=== PATIENT | male | born 1960 | race Hispanic/Latino ===

== ENCOUNTER 2018-07-05 00:24 | Inpatient (IN) | payer OTHER, SELFPAY ==
[2018-07-05] MEDS ORDERED: Acetaminophen 500 MG TAB ONE (00:42)
[2018-07-05] MEDS ORDERED: Ibuprofen 800 MG TAB ONE (00:42)
[2018-07-05 00:55] LABS: #Lymphocytes 0.5 thou/uL (1.20-3.40); #Neutrophils 7.2 thou/uL (1.40-6.50); %Basophils 0.3 % (0.0-1.0); %Eosinophils 0.4 % (0.0-10.0); %Monocytes 0.4 % (0.0-10.0); %Neutrophils 91.9 % (42.0-75.0); Mean Corpuscular HGB CONC 34.6 g/dL (32.0-36.0); Mean Corpuscular Hemoglobin 30.8 pg (27.0-31.0); Mean Corpuscular Volume 89.1 fL (78.0-98.0); Mean Platelet Volume 7.6 fL (7.4-10.4); Platelet Count 198 thou/uL (130-400); RBC Distribution Width 11.9 % (11.5-14.5); Red Blood Cell (RBC) Count 5.19 mill/uL (4.70-6.10); White Blood Cell (WBC) Count 7.8 thou/uL (4.8-10.8)
[2018-07-05 01:25] LABS: ALT (SGPT) 35 U/L (8-55); AST (SGOT) 31 U/L (5-34); Albumin 4.5 g/dL (3.5-5.0); Alkaline Phosphatase 56 U/L (40-150); Anion Gap 18 mmol/L (10-20); BUN (Urea Nitrogen) 13 mg/dL (8.4-25.7); Bilirubin, Total 1.1 mg/dL (0.2-1.2); Calc. Creatinine Clearance 0 mL/min (70-130); Calcium 9.8 mg/dL (7.8-10.44); Carbon Dioxide 21 mmol/L (22-29); Chloride 102 mmol/L (98-107); Estimated GFR-MDRD 84; Globulin 3.1 g/dL (2.4-3.5); Glucose 147 mg/dL (70-105); Potassium 3.7 mmol/L (3.5-5.1); Protein, Total 7.6 g/dL (6.0-8.3); Sodium 137 mmol/L (136-145)
[2018-07-05 02:17] LABS: Bilirubin Negative (Negative); Blood, Urine Small (Negative); Clarity CLOUDY (Clear); Glucose, Urine (Dipstick) Negative (Negative); Leukocyte Large (Negative); Nitrite Negative (Negative); Protein, Urine (Dipstick) Negative (Neg-Trace); Specific Gravity, Urine 1.013 (1.002-1.036); pH, Urine 5.5 (5.0-9.0)
[2018-07-05 02:19] LABS: Bacteria/HPF 4+ HPF (None Seen); Hyaline Casts/LPF 0-3 HYALINE CAST LPF (0-3 Hyaline); Pathc Cast-AUWi Flag 0.29 (0-2.49); Squamous Epithelial None Seen HPF (0-3)
[2018-07-05] MEDS ORDERED: Piperacillin/Tazobactam 4.5 GM VIAL ONE (02:39)
[2018-07-05] MEDS ORDERED: Sodium Chloride 0.9% 100 ML ONE (02:39)
[2018-07-05] MEDS ORDERED: Vancomycin HCl 1.5 GM in Sodium Chloride 0.9% 250 ML 300 ML IVPB SCH (03:15)
[2018-07-05] MEDS ORDERED: Zolpidem Tartrate 5 MG TAB PO PRN (04:48)
[2018-07-05] MEDS ORDERED: Dextrose 5% in Water 1,000 ML IV PRN (04:48)
[2018-07-05] MEDS ORDERED: Ondansetron PF 4 MG/2 ML Vial IVP PRN (04:48)
[2018-07-05] MEDS ORDERED: HumaLOG 300 UNITS/3 ML VIAL SC PRN (04:48)
[2018-07-05] MEDS ORDERED: Ondansetron ODT 4 MG TAB PO PRN (04:48)
[2018-07-05] MEDS ORDERED: Dextrose 50% Abboject 50 ML SYRINGE SLOW IVP PRN (04:48)
[2018-07-05 04:55] LABS: Lactic Acid 2.5 mmol/L (0.5-2.2)
[2018-07-05] MEDS ORDERED: Sodium Chloride 0.9% 1,000 ML IV SCH (05:00)
[2018-07-05 05:18] VITALS: BMI 31.1
--- NOTE | 2018-07-05 05:24 | HP ---
CHIEF COMPLAINT: The patient is here with fever. HISTORY OF PRESENT ILLNESS: This is a 58-year-old male with past medical history of hypertension, diabetes, presenting with fever, which has been ongoing for the past 2 hours prior to the time of admission. The patient states that he had an episode of vomiting that was associated with fever and this prompted the patient to come to the ED visit to be evaluated. Per records, the patient has not been sick recently and the patient does not have any sick contact. He denies any travel history. The patient endorses loss of appetite, vomiting, fever, dysuria, or increasing frequency. REVIEW OF SYSTEMS: Positive for fever, vomiting, increase in frequency with urination. Denies abdominal pain, hematuria, hematochezia, melena, shortness of breath, chest pain, or palpitations. PAST MEDICAL HISTORY: 1. Diabetes mellitus. 2. Hypertension. FAMILY HISTORY: Reviewed and noncontributory to today's visit. PSYCHIATRIC HISTORY: No previous psych history. SOCIAL HISTORY: The patient denies alcohol, denies any illicit drugs, and denies any smoking history. CURRENT MEDICATIONS: The patient takes amlodipine 5 mg, clonidine 0.1 mg, metformin 1000 mg, lisinopril/hydrochlorothiazide 20 mg/25 mg. ALLERGIES: NO KNOWN DRUG ALLERGIES. PHYSICAL EXAMINATION: VITAL SIGNS: The patient's blood pressure is 106/60, respiratory rate of 22, temperature of 105, heart rate of 107. GENERAL: The patient is lying in bed, does not appear to be in any acute distress. The patient is alert and oriented x3. HEENT: Normocephalic and atraumatic. Pupils are equally round and reactive to light. Extraocular movements are intact. No scleral icterus. No conjunctival pallor. NECK: Supple, nontender. Trachea is midline. No JVD. LUNGS: Clear to auscultation bilaterally. No wheezing, no rales, no rhonchi appreciated. CARDIAC: Positive S1 and S2. Regular rate and rhythm. No murmurs, no gallops, no rubs appreciated. ABDOMEN: Soft, nontender, and nondistended. No palpable masses. Positive bowel sounds in all quadrants. EXTREMITIES: The patient have 5/5 upper extremities with good pulses bilaterally at the upper extremities. No edema noted. Lower extremities; the patient have 5/5 lower extremity strength and good pulses bilaterally of the lower extremities. No edema noted. NEUROLOGIC: Cranial nerves 2 through 12 intact. No neurologic deficits noted. SKIN: Warm, dry, and intact. PSYCH: Normal affect. LABORATORY DATA: WBC 7.8, hemoglobin 15.0, hematocrit is 46.2, and platelet count is 198. Sodium is 137, potassium 3.7, chloride 102, carbon dioxide 21, anion gap of 18, BUN 13, creatinine 0.92, estimated GFR is 84, glucose 147, lactic acid is 5.1, AST 31, and ALT 35. Troponin is less than 0.10. Urinalysis positive for leuko esterase, negative for nitrites. ASSESSMENT AND PLAN: This is a 58-year-old male being admitted for: 1. Sepsis secondary to urinary tract infection. The patient has been started on antibiotics. We will continue the patient on antibiotics. We will continue IV hydration. We will do p.r.n. medications for fever and pain. We will follow up on cultures and we will follow up on morning labs. 2. History of hypertension. Currently, the patient's blood pressure is stable. We will continue to monitor the patient's blood pressure and will give the patient p.r.n. blood pressure medication as needed. 3. Diabetes mellitus type 2. Currently, sugars are controlled. We will continue the patient on insulin sliding scale. We will monitor the patient closely. 4. Deep venous thrombosis and gastrointestinal prophylaxis. Job ID: [id number]
[2018-07-05 06:18] LABS: Anion Gap 11 mmol/L (10-20); BUN (Urea Nitrogen) 10 mg/dL (8.4-25.7); Calc. Creatinine Clearance 107 mL/min (70-130); Calcium 8.3 mg/dL (7.8-10.44); Carbon Dioxide 21 mmol/L (22-29); Chloride 108 mmol/L (98-107); Estimated GFR-MDRD 87; Glucose 188 mg/dL (70-105); Potassium 3.1 mmol/L (3.5-5.1); Sodium 137 mmol/L (136-145)
[2018-07-05 06:39] LABS: Band 28 % (5-11); Eosinophils 1 % (0-10); Hemoglobin 13.7 g/dL (14.0-18.0); Lymphocytes 1 % (21-51); MDiff Complete? YES; Mean Corpuscular HGB CONC 34.2 g/dL (32.0-36.0); Mean Corpuscular Hemoglobin 30.7 pg (27.0-31.0); Mean Corpuscular Volume 89.7 fL (78.0-98.0); Monocytes 7 % (0-10); Neutrophil 63 % (42-75); PLT Morphology Comment Appears Adequate; Platelet Count 178 thou/uL (130-400); RBC Distribution Width 11.8 % (11.5-14.5); Red Blood Cell (RBC) Count 4.46 mill/uL (4.70-6.10); White Blood Cell (WBC) Count 18.1 thou/uL (4.8-10.8)
[2018-07-05] MEDS: HumaLOG 300 UNITS/3 ML VIAL SC PRN ×2 (06:46→18:10)
[2018-07-05] MEDS: Sodium Chloride 0.9% 1,000 ML IV SCH ×2 (08:49→19:16)
[2018-07-05] MEDS: Enoxaparin Sodium 40 MG/0.4 ML SYRINGE SC SCH (08:53)
[2018-07-05] MEDS: Famotidine 20 MG TAB PO SCH ×2 (08:53→21:47)
[2018-07-05] MEDS ORDERED: Famotidine/PF 20 mg/2ml Vial SLOW IVP SCH (09:00)
--- NOTE | 2018-07-05 09:57 | RAD ---
SINGLE VIEW OF THE CHEST: COMPARISON: None. HISTORY: Fever and chills. FINDINGS: Single view of the chest shows a normal sized cardiomediastinal silhouette. There is no evidence of c onsolidation, mass, or pleural effusion. The bones are unremarkable. IMPRESSION: No evidence of acute cardiopulmonary disease. POS: [facility]
--- NOTE | 2018-07-05 12:14 | PDOC.EVN ---
Event Note - Event Note Event Note: Lactic acid trending down, afebrile. Continue Levaquin and follow up on labs.
[2018-07-05] MEDS ORDERED: Pot Chloride/Pot Bicarb/Cit Ac 25 mEq Effervescent Tablet PO ONE (13:00)
[2018-07-05] MEDS: Acetaminophen 325 MG TAB PO PRN ×2 (15:55→21:48)
[2018-07-05 17:13] LABS: Lactic Acid 1.9 mmol/L (0.5-2.2)
[2018-07-06] MEDS: Acetaminophen 325 MG TAB PO PRN (02:29)
[2018-07-06] MEDS: Sodium Chloride 0.9% 1,000 ML IV SCH ×2 (02:34→13:46)
[2018-07-06 05:48] LABS: Anion Gap 11 mmol/L (10-20); BUN (Urea Nitrogen) 8 mg/dL (8.4-25.7); Calc. Creatinine Clearance 125 mL/min (70-130); Calcium 8.3 mg/dL (7.8-10.44); Carbon Dioxide 22 mmol/L (22-29); Chloride 108 mmol/L (98-107); Estimated GFR-MDRD Greater than 90; Glucose 148 mg/dL (70-105); Sodium 138 mmol/L (136-145)
[2018-07-06 05:55] LABS: Band 7 % (5-11); Hemoglobin 13.1 g/dL (14.0-18.0); Lymphocytes 4 % (21-51); MDiff Complete? YES; Mean Corpuscular HGB CONC 34.1 g/dL (32.0-36.0); Mean Corpuscular Hemoglobin 30.8 pg (27.0-31.0); Mean Corpuscular Volume 90.5 fL (78.0-98.0); Mean Platelet Volume 8.3 fL (7.4-10.4); Monocytes 3 % (0-10); Neutrophil 86 % (42-75); PLT Morphology Comment Appears Adequate; Platelet Count 138 thou/uL (130-400); RBC Morphology Normal; Red Blood Cell (RBC) Count 4.26 mill/uL (4.70-6.10); White Blood Cell (WBC) Count 14.8 thou/uL (4.8-10.8)
[2018-07-06] MEDS ORDERED: Meropenem 1 GM in Sodium Chloride 0.9% 100 ML IVPB SCH (08:36)
[2018-07-06] MEDS: Enoxaparin Sodium 40 MG/0.4 ML SYRINGE SC SCH (08:58)
[2018-07-06] MEDS: Famotidine 20 MG TAB PO SCH (08:58)
[2018-07-06] MEDS ORDERED: Pot Chloride/Pot Bicarb/Cit Ac 25 mEq Effervescent Tablet PO ONE (09:30)
[2018-07-06 12:53] VITALS: BP 138/79; TEMP 99.3
[2018-07-06] MEDS: HumaLOG 300 UNITS/3 ML VIAL SC PRN (12:53)
[2018-07-06] MEDS ORDERED: MEROPENEM 1 GM/50 ML 1 GM in Premix Bag 1 BAG IVPB SCH (14:00)
--- NOTE | 2018-07-07 14:04 | EKG ---
Test Reason : Blood Pressure : / mmHG Vent. Rate : 120 BPM Atrial Rate : 120 BPM P-R Int : 164 ms QRS Dur : 102 ms QT Int : 304 ms P-R-T Axes : 031 -03 048 degrees QTc Int : 429 ms Sinus tachycardia Nonspecific T wave abnormality Abnormal ECG Confirmed by REJI DINERO DO ([id number]), business editor GUILLERMO MENDIOLA ([id number] on 07/07/2018 2:04:17 PM Referred By: Confirmed By:REJI DINERO DO
== END 2018-07-06 18:01 | disposition home or self-care (01) | DRG 872 ==
LOC: ERS 00:24 → 2SE 03:33 → 2NO 19:05
PROVIDERS: ADMIT Internal Medicine; ATTEND Internal Medicine
DX: A41.9 Sepsis, unspecified organism (principal); N39.0 Urinary tract infection, site not specified; I10 Essential (primary) hypertension; E11.9 Type 2 diabetes mellitus without complications; Z23 Encounter for immunization; Z79.84 Long term (current) use of oral hypoglycemic drugs; Z79.2 Long term (current) use of antibiotics
CPT/HCPCS: 36415; 36416; 71045; 80048; 80053; 81003; 81015; 83605; 84484; 85025; 87040; 87077; 87086; 87149; 87186; 87804; 90471; 90686; 90732; 93005; 96361; 96365; 96367; G0008; G0009; J1650; J1956; J2185; J2543; J3370; J7050; S0028